=== PATIENT | male | born 1990 | race Caucasian/White ===

== ENCOUNTER 2020-11-06 12:53 | Day surgery (SDC) | payer OTHER ==
[~2020-11-06] VITALS: Ht 180.3 cm; Wt 70.0 kg
[~2020-11-06 12:53] MED LIST: BUPIVACAINE/PF 0.5% ONE; dicyclomine PO
[2020-11-06] MEDS ORDERED: MIDAZOLAM 1 MG/ML, 2ML ONE (12:58)
[2020-11-06 13:13] VITALS: BP 148/92
[2020-11-06] MEDS ORDERED: CHLORHEXIDINE 15 ML UDC ONE (13:16)
[2020-11-06] MEDS ORDERED: CHLORHEXIDINE 15 ML UDC PO ONE (13:30)
[2020-11-06] MEDS ORDERED: LABETALOL 5MG/ML, 20ML IV PRN (13:30)
[2020-11-06] MEDS ORDERED: OXYcodone 5 MG/5 ML ORAL.SOL UDC PO PRN (13:30)
[2020-11-06] MEDS ORDERED: PROMETHAZINE 25 MG/ML, 1ML IVPush PRN (13:30)
[2020-11-06] MEDS ORDERED: ONDANSETRON 2MG/ML, 2ML IVPush PRN (13:30)
[2020-11-06] MEDS ORDERED: METHOCARBAMOL 1,000 MG in DEXTROSE 5% 100 ML IV PRN (13:30)
[2020-11-06] MEDS ORDERED: hydrALAzine 20 MG/ML, 1ML IV PRN (13:30)
[2020-11-06] MEDS ORDERED: LACTATED RINGERS 1,000 ML IV SCH (13:30)
[2020-11-06] MEDS ORDERED: EPHEDRINE 50 MG/ML, 1ML IVPush PRN (13:30)
[2020-11-06] MEDS ORDERED: EPHEDRINE 50 MG/ML, 1ML IM PRN (13:30)
[2020-11-06] MEDS ORDERED: ACETAMINOPHEN 325 MG TABLET PO PRN (13:30)
[2020-11-06] MEDS ORDERED: MEPERIDINE/PF 25MG/0.5ML IVPush PRN (13:30)
[2020-11-06] MEDS ORDERED: ROCURONIUM 10 MG/ML,10ML ONE (13:31)
[2020-11-06] MEDS ORDERED: ONDANSETRON 2MG/ML, 2ML ONE (13:31)
[2020-11-06] MEDS ORDERED: CEFOTETAN 2 GM ONE (13:31)
[2020-11-06] MEDS ORDERED: PROPOFOL 10 MG/ML, 20ML ONE (13:31)
[2020-11-06] MEDS ORDERED: DEXAMETHASONE 4 MG/ML, 1ML ONE (13:31)
[2020-11-06] MEDS ORDERED: NEOSTIGMINE 1 MG/ML, 10ML ONE (13:31)
[2020-11-06] MEDS ORDERED: GLYCOPYRROLATE 0.2MG/1ML, 5ML ONE (13:31)
[2020-11-06] MEDS ORDERED: KETOROLAC 30 MG/1 ML ONE (13:31)
[2020-11-06] MEDS ORDERED: SUCCINYLCHOLINE 20 MG/ML, 10ML ONE (13:31)
[2020-11-06] MEDS ORDERED: MEPERIDINE/PF 50 MG/ML ONE (14:33)
[2020-11-06] MEDS ORDERED: OXYC1TAB14 PO (14:41)
[2020-11-06] MEDS ORDERED: hydrALAzine 20 MG/ML, 1ML ONE (14:47)
[2020-11-06] MEDS ORDERED: OXYcodone 5 MG/5 ML ORAL.SOL UDC ONE (15:04)
[2020-11-06] MEDS ORDERED: FENTANYL PF 100 MCG/2ML ONE ×2 (15:04→15:22)
[2020-11-06] MEDS: FENTANYL PF 100 MCG/2ML IV PRN ×4 (15:06→15:35)
[2020-11-06] MEDS ORDERED: MEPERIDINE/PF 25MG/ML,1ML ONE (15:11)
[2020-11-06] MEDS ORDERED: LORazepam 2 MG/ML, 1ML ONE (15:15)
[2020-11-06] MEDS: LORazepam 2 MG/ML, 1ML IVPush PRN ×2 (15:17→15:38)
[2020-11-06] MEDS ORDERED: HYDROmorphone 1 MG/ML, 1ML INJ ONE (15:28)
[2020-11-06] MEDS: HYDROmorphone 1 MG/ML, 1ML INJ IVPush PRN ×2 (15:31→15:50)
== END 2020-11-06 18:15 | disposition home or self-care (01) ==
LOC: OUT 12:53 → EDSTATUS 14:30 → OUT 18:15
PROVIDERS: ATTEND Surgery
DX: K38.8 Other specified diseases of appendix (principal); K36 Other appendicitis; K80.10 Calculus of gallbladder with chronic cholecystitis without obstruction; K82.8 Other specified diseases of gallbladder; F32.9 Major depressive disorder, single episode, unspecified; Z20.822 Contact with and (suspected) exposure to COVID-19; Z79.899 Other long term (current) drug therapy; Z87.891 Personal history of nicotine dependence; Z98.890 Other specified postprocedural states
CPT/HCPCS: 44970; 47562; 88302; 88304; J0330; J0360; J1100; J1170; J1885; J2060; J2175; J2250; J2405; J2704; J2710; J2800; J3010; J7120; U0003; U0005